=== PATIENT | female | born 1985 | race Caucasian/White ===

== ENCOUNTER 2020-07-29 14:23 | Emergency (ER) | payer OTHER, SELFPAY ==
--- NOTE | ~2020-07-29 | XR_ITS ---
EXAMINATION: XR foot LT min 3V DATE: 07/29/2020 15:09 INDICATION: Left foot pain, initial encounter TECHNIQUE: Dorsoplantar, lateral, and 2 oblique views of the left foot were obtained. COMPARISON: None. FINDINGS: There is an acute, traumatic, closed, oblique fracture involving the distal shaft of the fi fth metatarsal. Soft tissue swelling surrounds the fracture. No additional acute osseous abnormality is identified. The joint spaces are normal. IMPRESSION: 1. Acute fracture of the fifth metatarsal. Reviewed, dictated and finalized at location A. [employer]
[2020-07-29 14:38] VITALS: BP 149/90; PULSE 89; RESP 16; TEMP 36.6; O2SAT 100
--- NOTE | 2020-07-29 15:04 | ED.LOWEXIN ---
HPI - Extremity Injury (Lower) General Chief Complaint: Extremity Injury, Lower Stated Complaint: left foot injury Time Seen by Provider: 07/29/20 14:52 History of Present Illness HPI Narrative: Patient is a 35-year-old female who presents the ER with left foot pain. She was walking down some steps yesterday when she slipped and fell. Did not lose consciousness. She does remember the fall. Unsure sure how she actually injured her foot though. She then went to bed. Family reports earlier in evening patient had been acting little odd in the room, she had not been drinking, though similar to when she had had a seizure a while back. Patient is currently on antiepileptics and has been taking medication. No witnessed tonic-clonic seizure activity. They are attempting to follow-up with neurology. Patient has no new numbness or tingling. She has significant bruising over the dorsum of the left foot. Related Data Allergies Allergy/AdvReac Type Severity Reaction Status Date / Time codeine AdvReac Mild Nausea and Verified 07/29/20 15:08 Vomiting hydrocodone AdvReac Mild Nausea and Verified 07/29/20 15:08 Vomiting Review of Systems Musculoskeletal: Musculoskeletal: Reports no additional musculoskeletal complaints Comments: Left foot pain Integumentary/Breasts: Skin/Breast: Reports system reviewed and no additional complaints, except as docu Comments: Left foot bruising Neurologic: Denies focal weakness and Denies numbness Comments: Questionable seizure activity. [facility] Past Medical History Medical History (Updated 07/29/20 @ 16:23 by Frandy Muse MD) Seizures Tobacco abuse Family History Family History Grandparent Hypertension Family history of lung cancer Diabetes mellitus Mother Cerebrovascular accident Patient's mother is in good health Social History Social History Smoking status: Current every day smoker Alcohol intake: never Gender identity (if verbalized by the patient): Female Exam Narrative: Exam Narrative: GENERAL: Well-appearing, well-nourished, and in no acute distress. HEAD: Normocephalic, atraumatic. EXTREMITIES: Normal range of motion. TTP over the 2nd-5th metatarsals of the left foot with overlying bruising. SKIN: Warm, dry, no rash. NEURO: No focal deficits. Alert and oriented x3. PSYCH: Normal mood and affect. Course Course Emergency Course: Informed of results. Discharge home. Vital Signs Vital signs: Vital Signs Temperature 97.8 F 07/29/20 14:38 Pulse Rate 89 07/29/20 14:38 Respiratory Rate 16 07/29/20 14:38 Blood Pressure 149/90 H 07/29/20 14:38 Pulse Oximetry 100 07/29/20 14:38 Temperature 97.8 F 07/29/20 14:38 Pulse Rate 89 07/29/20 14:38 Respiratory Rate 16 07/29/20 14:38 Blood Pressure 149/90 H 07/29/20 14:38 Pulse Oximetry 100 07/29/20 14:38 MDM - Extremity Injury (Lower) Imaging Data Radiologist's impression: ITS Impressions Foot X-Ray 07/29/20 15:20 IMPRESSION: 1. Acute fracture of the fifth metatarsal. Discharge Plan Discharge Clinical Impression: Fracture of 5th metatarsal Patient Disposition: Home, Self-Care Condition: Stable Instructions: Foot Fracture in Adults (ED) Additional Instructions: Follow-up with orthopedic surgery for further treatment evaluation. Wear your postop shoe and use your crutches. Do not bear weight until cleared by orthopedic surgery. Return to the ER if you suffer additional injury, you have chest pain or shortness of breath, you have additional concerns. Prescriptions: New hydrocodone-acetaminophen 5-325 mg tablet 1 tablet PO Q6H PRN (Reason: pain) Qty: 20 RF: 0 No Action levetiracetam 500 mg tablet See Rx Instructions .ROUTE .COMPLEX Qty: 60 RF: 0 Follow-up/Referrals: Dieter Garcia MD [Physician] - 1 Week Valentin Ziegler MD
[2020-07-29] MEDS: HYDROcodone/acetaminophen (*CRX) 5-325 MG TABLET 1 TAB PO (15:10)
[2020-07-29 15:40] VITALS: TEMP 36.6
== END 2020-07-29 17:09 | disposition home or self-care (01) ==
PROVIDERS: Emergency Provider Emergency Medicine; PCP Family Medicine
DX: S92.352A Displaced fracture of fifth metatarsal bone, left foot, initial encounter for closed fracture (principal); F17.200 Nicotine dependence, unspecified, uncomplicated; W10.9XXA Fall (on) (from) unspecified stairs and steps, initial encounter
CPT/HCPCS: 73630; 99284; A9270

== ENCOUNTER 2020-08-03 10:30 | Outpatient (CLI) | payer OTHER, SELFPAY ==
[2020-08-03 11:44] LABS: Vitamin D 25 Hydroxy 39.8 ng/mL
== END 2020-08-03 10:31 | disposition home or self-care (01) ==
LOC: ANHLAB 10:32
PROVIDERS: PCP Family Medicine; Visit Provider Orthopaedic Surgery
DX: E55.9 Vitamin D deficiency, unspecified (principal)
CPT/HCPCS: 36415; 82306

== ENCOUNTER 2020-09-28 09:46 | Emergency (ER) | payer OTHER, SELFPAY ==
[2020-09-28 09:57] VITALS: BP 159/104; PULSE 104; RESP 20; TEMP 36.6; O2SAT 99
[2020-09-28 10:19] LABS: Basophils Percent Auto 0.3 % (0.2-1.2); Eosinophils Percent Auto 0.3 % (0-4.4); Hematocrit 45.9 % (37.0-47.0); Immature Granulocyte Absolute 0.05 K/mm3 (0.00-0.031); Immature Granulocyte Percent A 0.4 % (0-0.5); Lymphocytes Percent Auto 18.5 % (18.3-44.2); Mean Corpuscular HGB Conc 34.9 g/dl (32-36); Mean Corpuscular Hemoglobin 31.4 pg (26-34); Mean Corpuscular Volume 90.2 fl (80-100); Mean Platelet Volume 8.9 fl (7.4-10.4); Monocytes Percent Auto 7.3 % (2.6-8.5); Neutrophils Absolute Auto 9.9 K/mm3 (1.3-6.7); Neutrophils Percent Auto 73.2 % (45.5-73.1); Platelet Count Result 397 k/mm3 (150-375); Red Blood Count 5.09 M/mm3 (4.2-5.4); Red Cell Distribution Width 12.2 % (11.5-14.5); White Blood Count 13.5 K/mm3 (4.5-10.0)
[2020-09-28 10:29] LABS: Alanine Aminotransferase 56 U/L (4-35); Albumin Level 5.1 g/dL (3.5-5.1); Alkaline Phosphatase 104 U/L (38-126); Anion Gap 13 mmol/L (8-16); Aspartate Amino Transferase 41 U/L (14-36); Bilirubin,Total 0.6 mg/dL (0.2-1.3); Blood Urea Nitrogen 21 mg/dL (7-17); Calcium 9.8 mg/dL (8.4-10.2); Carbon Dioxide 25 mmol/L (22-30); Chloride 99 mmol/L (98-107); Estimated CRCL calculation 81 ml/min; Estimated Glomerular Filt Rate > 60; Glucose 118 mg/dL (65-105); Lipase 113 U/L (23-300); Potassium 3.9 mmol/L (3.4-5.0); Sodium 137 mmol/L (137-145)
[2020-09-28 10:36] LABS: Add Urine Microscopic? YES; Appearance Urine Cloudy (Clear); Bacteria Urine Trace /hpf; Bilirubin Urine Negative (Negative); Blood Urine 2+ (Negative); Color Urine Amber (Yellow); Glucose Urine UA 1+ mg/dL (Negative); Hyaline Casts Urine 20-29 /lpf; Ketones Urine 1+ mg/dL (Negative); Leukocyte Esterase Ur Negative LEU/UL (Negative); Mucus Urine Heavy /lpf; Nitrate Urine Negative (Negative); Protein Urine 3+ mg/dL (Negative); Squamous Epithelial Cell Urine Many /hpf (Few); Urobilinogen Urine Negative mg/dL (<2.0)
[2020-09-28] MEDS: FAMOTIDINE 20 MG/2 ML VIAL IV PUSH (10:59)
[2020-09-28] MEDS: LACTATED RINGERS 1,000 ML 999 ML IV CONT (10:59)
[2020-09-28] MEDS: PROCHLORPERAZINE EDISYLATE 10 MG/2 ML VIAL IV PUSH (11:05)
[2020-09-28] MEDS: levETIRAcetam 1000MG/NACL100ML 1,000 MG/100 ML BAG 400 MG IVPB (11:05)
--- NOTE | 2020-09-28 11:17 | ED.GENADULT ---
HPI - General Adult General Chief complaint: Nausea/Vomiting/Diarrhea Stated complaint: vomiting x 2 days Time Seen by Provider: 09/28/20 10:18 Source: patient Mode of arrival: ambulatory Limitations: no limitations History of Present Illness HPI narrative: Patient is 35-year-old female who presents to emergency department for evaluation of nausea and vomiting that began Saturday and has since been unable to keep fluids down or her medications patient notes history of seizure disorder followed by primary care. Patient believes that it may have been attributed to food that she had eaten that day or the day before. Patient denies diarrhea rectal bleeding hematemesis URI symptoms or other complaints. Patient attempted some of her mother's nausea medication with mild improvement. Related Data Allergies Allergy/AdvReac Type Severity Reaction Status Date / Time codeine AdvReac Mild Nausea and Verified 09/28/20 10:11 Vomiting hydrocodone AdvReac Mild Nausea and Verified 09/28/20 10:11 Vomiting Review of Systems Review of Systems: All systems reviewed & are unremarkable except as noted in HPI and below PMFSH Past Medical History Medical History Seizures Tobacco abuse Family History Family History Grandparent Hypertension Family history of lung cancer Diabetes mellitus Mother Cerebrovascular accident Patient's mother is in good health Social History Social History Smoking status: Current every day smoker Alcohol intake: never Gender identity (if verbalized by the patient): Female Exam Narrative: Exam Narrative: GENERAL: Well-appearing, well-nourished, and in no acute distress. HEAD: Normocephalic, atraumatic. EYES: PERRLA and EOMI. ENT: Nares clear, no rhinorrhea or epistaxis. Mucous membranes moist. CHEST: Clear to auscultation. No respiratory distress. No wheezes rales or rhonchi HEART: Regular rate and rhythm. No murmur heard. Normal peripheral pulses. ABDOMEN: Soft, mild tenderness of the abdomen no rebound or guarding, nondistended, normal active bowel sounds. EXTREMITIES: Normal range of motion. No edema. SKIN: Warm, dry, no rash. NEURO: No focal deficits. Alert and oriented x3. Cranial nerves II through XII grossly intact PSYCH: Normal mood and affect. Course Course Emergency Course: Patient is a 35-year-old female who presented with GI upset for several days was evaluated with blood work and had improvement and is tolerating p.o. intake patient denies any pain currently patient's abdomen was palpated and nontender patient notes she will follow with primary care was loaded with Keppra patient feeling much better at this time will be treated symptomatically given reasons to return and agrees to do so if symptoms worsen Vital Signs Vital signs: Vital Signs Temperature 97.8 F 09/28/20 09:57 Pulse Rate 104 H 09/28/20 09:57 Respiratory Rate 20 09/28/20 09:57 Blood Pressure 159/104 H 09/28/20 09:57 Pulse Oximetry 99 09/28/20 09:57 Temperature 97.8 F 09/28/20 09:57 Pulse Rate 104 H 09/28/20 09:57 Respiratory Rate 20 09/28/20 09:57 Blood Pressure 159/104 H 09/28/20 09:57 Pulse Oximetry 99 09/28/20 09:57 Medical Decision Making [facility] Narrative Medical decision making narrative: Patient aware of case findings treatment plan diagnosis felt better with interventions will be discharged home with outpatient follow-up patient agrees with this plan Vital Signs Vital Signs: Vital Signs Temperature 97.8 F 09/28/20 09:57 Pulse Rate 104 H 09/28/20 09:57 Respiratory Rate 09/28/20 09:57 Blood Pressure 159/104 H 09/28/20 09:57 Pulse Oximetry 99 09/28/20 09:57 Temperature 97.8 F 09/28/20 09:57 Pulse Rate 104 H 09/28/20 09:57 Respiratory Rate 20 09/28/20 09:57 Blood Pressure 159/104
[2020-09-28 11:33] LABS: Amphetamine Screen Urine Negative (Negative); Barbiturate Screen Urine Negative (Negative); Benzodiazepines Screen Urine Negative (Negative); Cannabinoid Screen Urine Positive (Negative); Cocaine Screen Urine Negative (Negative); Methadone Screen Urine Negative (Negative); Opiate Screen Urine Negative (Negative); Phencyclidine Screen Urine Negative (Negative)
[2020-09-28 13:08] VITALS: BP 147/99; PULSE 76; RESP 14; O2SAT 99
== END 2020-09-28 13:10 | disposition home or self-care (01) ==
PROVIDERS: Emergency Medicine Emergency Medical Services; Emergency Provider Emergency Medicine; PCP Family Medicine
DX: R10.9 Unspecified abdominal pain (principal); G40.919 Epilepsy, unspecified, intractable, without status epilepticus; F17.200 Nicotine dependence, unspecified, uncomplicated
CPT/HCPCS: 36415; 80053; 80307; 81001; 81025; 83690; 85025; 96365; 96375; 99284; J0131; J0780; J1953; J7120

== ENCOUNTER 2022-11-27 10:23 | Outpatient (CLI) | payer BC, OTHER, SELFPAY ==
--- NOTE | ~2022-11-27 | XR_ITS ---
Clinical Indication: Cough PA and lateral views of the chest: Comparison: None Findings: 1 cm opacity at the right lung base noted. Left lung clear. Cardiomediastinal silhouette i s within normal limits. Bones and soft tissues are unremarkable. Impression: Possible 1 cm right lung base pulmonary nodule. CT scan recommended to confirm or exclude pulmonary n odule. Reviewed, dictated and finalized at location . Impression: Possible 1 cm right lung base pulmonary nodule. CT scan recommended to confirm or exclude pulmonary nodule.
== END 2022-11-27 10:24 | disposition home or self-care (01) ==
PROVIDERS: PCP Family Medicine; Visit Provider Nurse Practitioner Family
DX: R05.9 Cough, unspecified (principal); R06.02 Shortness of breath; R91.8 Other nonspecific abnormal finding of lung field
CPT/HCPCS: 71046

== ENCOUNTER 2023-03-15 08:01 | Outpatient (CLI) | payer BC, SELFPAY ==
[2023-03-15 10:20] LABS: Hematocrit 42.1 % (37.0-47.0); Hemoglobin 14.1 g/dL (12.0-15.0); Mean Corpuscular HGB Conc 33.5 g/dl (32-36); Mean Corpuscular Hemoglobin 31.1 pg (26-34); Mean Corpuscular Volume 92.7 fl (80-100); Platelet Count Result 353 k/mm3 (150-375); Red Blood Count 4.54 M/mm3 (4.2-5.4); White Blood Count 8.3 K/mm3 (4.5-10.0)
[2023-03-15 10:31] LABS: Anion Gap 7 mmol/L (8-16); Blood Urea Nitrogen 11 mg/dL (7-17); Carbon Dioxide 26 mmol/L (22-30); Chloride 107 mmol/L (98-107); Cholesterol 237 mg/dL (0-200); Estimated Glomerular Filt Rate > 60; Glucose 97 mg/dL (65-110); HDL Direct 50 mg/dL; Potassium 4.1 mmol/L (3.4-5.0); Sodium 140 mmol/L (137-145); Triglycerides 100 mg/dL (<150)
[2023-03-15 10:42] LABS: LDL Cholesterol Direct 149 mg/dL
== END 2023-03-15 08:02 | disposition home or self-care (01) ==
PROVIDERS: PCP Family Medicine; Visit Provider Nurse Practitioner Family
DX: F41.9 Anxiety disorder, unspecified (principal); G43.909 Migraine, unspecified, not intractable, without status migrainosus; I10 Essential (primary) hypertension
CPT/HCPCS: 36415; 80048; 80061; 84443; 85027